=== PATIENT | female | born 1945 | race African-American/Black ===

== ENCOUNTER → 2018-01-08 | Outpatient (CLI) | payer MEDICARE, BC | END | disposition home or self-care (01) | LOC: NM 08:43 | PROVIDERS: ATTEND Internal Medicine Endocrinology, Diabetes & Metabolism | DX: E21.3 Hyperparathyroidism, unspecified (principal) | CPT/HCPCS: 78070; A9500 ==

== ENCOUNTER → 2023-03-06 | Day surgery (SDC) | payer MEDICARE, BC ==
[~2023-03-06] VITALS: Ht 162.6 cm; Wt 73.0 kg
[~2023-03-06] MED LIST: ALEN70TA79 PO; AMLO2.5T45 PO; ATOR10TA69 PO; BALANCED SALT IRRIG SOLN 15ML ONE; BALANCED SALT IRRIG SOLN COMB1 500ML OP NR; CHOL100046 PO; CINA30TA5 PO; CIPROFLOXACIN 0.3% OPHTH SOLN 2.5ML ONE; CYCLOPENTOLATE HCL 1% OPHTH DROPS 2ML RIGHTEYE SCH; FENTANYL CITRATE/PF 50MCG/ML 2ML VIAL ONE; HYALURONATE SODIUM 10 MG/ML 0.55ML SYRINGE IO ONE; KETOROLAC 30MG/ML VIAL ONE; LACTATED RINGERS 1,000 ML IV SCH; LIDOCAINE HCL/PF 2% 20MG/ML 5 ML/VIAL ONE; LOSA50TA41 PO; METO-396 PO; MIDAZOLAM HCL 2 MG/2 ML VIAL ONE; NEO/POLYMYX B SULF/DEXAMETH OPHTH OINT 3.5GM ONE; PHENYLEPHRINE HCL 10% OPHTH DROPS 5ML RIGHTEYE SCH; PREDNISOLONE ACETATE 1% OPHTH DROPS 5ML ONE; TETRACAINE 0.5% OPHTH DROPS 4ML ONE; TROPICAMIDE 1% OPHTH DROPS 15ML RIGHTEYE SCH
== END | disposition home or self-care (01) ==
LOC: OR 06:29
PROVIDERS: ATTEND Ophthalmology
DX: H25.89 Other age-related cataract (principal); I10 Essential (primary) hypertension; E78.5 Hyperlipidemia, unspecified; Z79.899 Other long term (current) drug therapy; Z98.890 Other specified postprocedural states
CPT/HCPCS: 66984; A4217; J1885; J2250; J3010; J3490; V2632; Z7610